=== PATIENT | male | born 1960 | race Caucasian/White ===

== ENCOUNTER → 2018-08-15 06:14 | Outpatient (CLI) | payer OTHER, SELFPAY ==
--- NOTE | 2018-08-15 06:36 | MRI_ITS ---
STUDY: MRI RIGHT KNEE REASON FOR EXAM: Instability, anterior pain, twisting injury 2 months ago, surgery 40 years ago. TECHNIQUE: Standardized fat and water weighted pulse sequences were obtained in all 3 orthogonal planes. COMPARISON: None. FINDINGS: There is a near-total medial meniscectomy without demonstrated recurrent tear of the small meniscal remnants. There is arthrosis of the medial femorotibial compartment with small marginal osteophytes, chondral thinning (T2 sagittal image 20) and mild subchondral cystic change of the medial tibial plateau and medial femoral condyle. There is thickening of the medial collateral ligament (proton-density coronal image 17) consistent with scarring. Normal distal semimembranosus, gracilis and semitendinosus tendons. There may be a very small superficial vertical tear of the inferior articular surface of the posterior horn of the lateral meniscus, identified only on a single slice (proton-density sagittal image 14). Normal hyaline cartilage of the lateral femorotibial compartment. There is a subchondral stress fracture of the lateral femoral condyle (T2 sagittal images 6, 7; T2 coronal images 11, 12) with bone edema. Normal proximal tibiofibular articulation. Normal lateral collateral (fibular) ligament. Normal popliteus tendon. Normal biceps femoris tendon. There is a chronic complete tear of the anterior cruciate ligament (proton-density coronal image 14). Normal posterior cruciate ligament (PCL). Normal congruent patellofemoral articulation. There is a small chondral tear of the lateral patellar facet (T2 axial image 10) with an adjacent subchondral cyst. Normal medial and lateral patellar retinaculum. Normal visualized quadriceps tendon. Normal patellar tendon. Normal Hoffa's fat pad. There is a minimal volume of fluid in the knee joint. The soft tissues are unremarkable. The otherwise visualized osseous structures are unremarkable. MRI/Lower Ext Joint Only (Routine) IMPRESSION: Subchondral stress fracture of the lateral femoral condyle. Chronic anterior cruciate ligament tear. There may be a very small superficial lateral meniscal tear, identified only on a single slice. Small chondral tear of the lateral patellar facet. Arthrosis of the medial femorotibial compartment. Near-total medial meniscectomy. Scarring of the medial collateral ligament. Electronically Signed: Shay Sierra MD at 8:24 EDT Tel , Service support ,
== END ==
PROVIDERS: Family Provider Family Medicine; PCP Family Medicine
DX: S83.91XA Sprain of unspecified site of right knee, initial encounter (principal)
CPT/HCPCS: 73721

== ENCOUNTER → 2025-02-26 | Outpatient (CLI) | payer MEDICARE, SELFPAY ==
--- NOTE | 2025-02-26 09:38 | MRI_ITS ---
PROCEDURE: MRI ABD WITH AND W/O CONTRAST 02/26/2025 REASON FOR EXAM: RENAL MASS FOLLOW UP TECHNIQUE: Procedure Code: [id number] Modality: MR Procedure: MRI ABD WITH AND W/O CONTRAST Multiplanar and multisequence images were obtained. CONTRAST: Clariscan VOLUME: 18 mL COMPARISON: CT chest abdomen and pelvis dated 07/15/2024 FINDINGS: There has been almost complete resolution of the fluid collection along the right paracolic gutter and just below the liver. There is no fluid collection identified within the right lateral abdominal wall. There are 2 T1 hyperintense lesions in the right kidney. There is 1 in the upper pole measuring 17 x 14 by 18 mm which demonstrates a thin septation. There is no internal enhancement. Diffusion- weighted imaging is not available. This is a 2nd lesion in the inferior cortex measuring 12 x 13 by 10 mm which demonstrates also no enhancement.. No suspicious lesion is identified in the left kidney. There is no hydronephrosis identified. The gallbladder has been removed. The visible liver spleen and pancreas appear unremarkable. Loops of bowel are within normal limits. There is no retroperitoneal lymphadenopathy. MRI/MRI Abd WITH and W/O Contrast IMPRESSION: There are 2 hemorrhagic renal cysts with a upper pole cyst demonstrating a slig ht thin septation. There is no suspicious pattern of enhancement. Continued surveillance recommended. Bosniak type 2. Reading Location: [id number]
== END | disposition home or self-care (01) ==
PROVIDERS: PCP Internal Medicine; Referring Provider Internal Medicine; Visit Provider Internal Medicine
DX: N28.89 Other specified disorders of kidney and ureter (principal); Z76.89 Persons encountering health services in other specified circumstances
CPT/HCPCS: 74183; A9575; A4216